=== PATIENT | male | born 1995 | race Two or more races ===

== ENCOUNTER 2025-02-23 17:28 | Inpatient (IN) | payer MEDICAID, OTHER ==
[~2025-02-23] VITALS: Ht 170.2 cm; Wt 78.0 kg
--- NOTE | 2025-02-23 19:06 | ED.PDOC ---
History of Present Illness HPI Comments 29 year old male presents to the ED with a chief complaint of abdominal pain onset today. Patient states he woke up today experiencing periumbilical pain, worsened around 13:00. Patient currently rates pain 10/10, has not taken any medication, has not experienced similar pain in the past. Denies fever, chills, nausea, vomiting, diarrhea, constipation, dysuria, hematuria, melena, blood in stool, heavy lifting. No other symptoms or modifying factors present at this time. PHYSICAL EXAM: General: Awake, alert and oriented. Skin: Skin in warm, dry and intact. Appropriate color for ethnicity. HEENT: The head is normocephalic and atraumatic. Conjunctivae are clear without exudates or hemorrhage. Sclera is non-icteric. Eyelids are normal in appearance without swelling or lesions. Oral mucosa is pink and moist Neck: The neck is supple with normal range of motion. No JVD. Cardiac: Heart rate and rhythm are normal. No murmurs, gallops, or rubs are auscultated. Respiratory: No signs of respiratory distress. Lung sounds are clear in all lobe s bilaterally without rales, rhonchi, or wheezes. Abdominal: periumbilical tenderness. Extremities: Upper and lower extremities are atraumatic in appearance without deformity or edema. Neurological: The patient is awake, alert and oriented to person, place, and time with normal speech. Speech is clear. There is no facial asymmetry. Psychiatric: Appropriate mood and affect. Good judgement and insight. REVIEW OF SYSTEMS: General: No fever, no chills, or fatigue HEENT: No sore throat, no earache, no congestion, no neck pain. Cardiac: No chest pain. No palpitations. Lungs: No shortness of breath, no cough. GI: Abdominal pain. No nausea, no vomiting, no diarrhea, no constipation, : No dysuria, frequency, or urgency. No hematuria. Musculoskeletal: No joint pain , no joint swelling, no extremity edema. Skin: No rash, no itching. Neuro: No headache, no dizziness, no weakness (And as sated in HPI) Chief Complaint: Abdominal Pain Time Seen by MD: 16:45 Reviewed Notes: Medications, Allergies Allergies: Coded Allergies: NO KNOWN ALLERGIES (Unverified , 02/23/25) Information Source: Patient, Spouse Mode of Arrival: Ambulatory Severity: Moderate Timing: Hours Duration: Since onset Prehospital treatment: None Past Medical History PAST MEDICAL HISTORY: Denies Surgical History: Denies all surgeries Family History Family History: Reviewed,noncontributory to illness, No family hx of Cancer, No family hx of DM, No family hx of Heart jae, No family hx of HTN, No family hx ofKidney jae, No family hx of Liver jae, No family hx of Lung jae, No family hx of Stroke Social History Smoker: Non-Smoker Alcohol: Denies ETOH Use Drugs: Denies Drug Use Lives In: Home Was a procedure done? Was a procedure done?: No Differential Dx Considerations may include: Differential diagnoses considered include: Abdominal aortic aneurysm, PA, esophageal rupture, intestinal obstruction, mesenteric ischemia, perforated viscus or solid organ rupture, CHF with hepatomegaly, pneumonia, abscess, appendicitis, biliary disease, diverticulitis, gastritis, gastroenteritis, hepatitis, hernia, inflammatory bowel disease, pancreatitis, peptic ulcer disease, urinary tract infection, ureteral colic, constipation, GERD, irritable syndrome, abdominal wall pain, nonspecific abdominal pain, herpes zoster, neph rolithiasis. X-Ray, Labs, Meds, VS Vital Signs Date Time Temp Pulse Resp B/P (MAP) Pulse Ox O2 Delivery O2 Flow Rate FiO2 02/23/25 21:55 99.0 74 20 118/70 (86) 100 99.0 02/23/25 17:29 97.0 58 18 123/75 100 97.0 Lab Test 02/23/25 19:13 Range/Units White Blood Count 12.1 H 4.4-10.8 10^3/uL Red Blood Count 5.03 4.5-5.90 10^6/uL Hemoglobin 16.8 13.5-17.5 g/dL Hematocrit 42.3 41.0-53.0 % Mean Corpuscular Volume 84.2 80.0-100.0 fL Mean Corpuscular Hemoglobin 33.4 H 28.0-32.0 pg Mean Corpuscular Hemoglobin Concent 39.6 H 32.0-36.0 g/dL Red Cell Distribution Width 13.5 11.8-14.3 % Platelet Count 231 140-450 10^3/uL Mean Platelet Volume 8.6 6.9-10.8 fL Neutrophils (%) (Auto) 79.2 37.0-80.0 % Lymphocytes (%) (Auto) 15.8 10.0-50.0 % Monocytes (%) (Auto) 3.8 0.0-12.0 % Eosinophils (%) (Auto) 0.7 0.0-7.0 % Basophils (%) (Auto) 0.5 0.0-2.0 % Neutrophils # (Auto) 9.6 H 1.6-8.6 10 ^3/uL Lymphocytes # (Auto) 1.9 0.4-5.4 10 ^3/uL Monocytes # (Auto) 0.5 0-1.3 10 ^3/uL Eosinophils # (Auto) 0.1 0-0.8 10 ^3/uL Basophils # (Auto) 0.1 0-0.2 10 ^3/uL Nucleated Red Blood Cells 0.1 % Sodium Level 133 L 136-145 mmol/L Potassium Level 4.6 3.5-5.1 mmol/L Chloride Level 98 98-107 mmol/L Carbon Dioxide Level 20 20-31 mmol/L Anion Gap 15 5-15 Blood Urea Nitrogen 11 9-23 mg/dL Creatinine 0.94 0.700-1.30 mg/dL Glomerular Filtration Rate Calc 112 >90 mL/min BUN/Creatinine Ratio 11.7 10.0-20.0 Serum Glucose 104 74-106 mg/dL Lactic Acid Level 0.9 0.4-2.0 mmol/L Calcium Level 9.5 8.7-10.4 mg/dL Lipase 328 H 12-53 U/L Time of 1ST Reevaluation: 17:15 Reevaluation 1ST: Unchanged Patient Education/Counseling: Diagnosis, Treatment, Need For Follow Up Family Education/Counseling: Diagnosis, Treatment, Need For Follow Up SEPSIS Sepsis Screen Date sepsis recognized/suspect: Feb 23, 2025 Time Sepsis recognized/suspect: 1730 Recent Procedure: No On Antibiotic Therapy: No Respiratory Rate >20: No Heart Rate >90: No Temp<36 C (96.8 F) or >38.3 C: No SBP <90 or MAP <65 mmHG: No New Acute Mental Status Change: No Is the patient on CPAP, BIPAP,: No Physician Orders Urinalysis (02/23/25 18:54) Ct Ab Pel With Iv Con Only (02/23/25 18:54) Saline Lock (02/23/25 18:54) Vital Signs Date Time Temp Pulse Resp B/P (MAP) Pulse Ox O2 Delivery O2 Flow Rate FiO2 02/23/25 21:55 99.0 74 20 118/70 (86) 100 99.0 02/23/25 17:29 97.0 58 18 123/75 100 97.0 Laboratory Tests Test 02/23/25 19:13 Lactic Acid Level 0.9 mmol/L (0.4-2.0) White Blood Count 12.1 10^3/uL (4.4-10.8) H Departure 1 Departure Time of Disposition: 22:09 Impression: Primary Impression: Acute pancreatitis Disposition: ADMITTED INPATIENT Condition: Stable Comments MDM: 29-year-old male with acute pancreatitis. IV fluids and antibiotics initiated in the ED Patient is stabilized in the ED. Patient admitted to hospitalist service for further treatment, evaluation and monitoring. Extensive evaluation was performed in attempt to identify or rule out: (See differential diagnosis section) The following tests were ordered, and results were reviewed by me and discussed with patient: (See diagnostic results section) The following test were independently interpreted by me: N/A I reviewed and agreed with the following test results read by other providers: CT abdomen pelvis I reviewed the following notes from the pt's past medical encounters: N/A Additional information was gathered from interviewing the following independent historians: Patient's at bedside Discussion of management or test interpretation with external physician/other qu alified health director critical care: N/A Addressed an acute or chronic illness that poses a threat to life or bodily function: Acute pancreatitis Decision regarding hospitalization or escalation of hospital level of care: Risk and benefits of admission for further treatment of patient's condition was considered. Due to patient's current clinical condition, high risk of decline and poor outcome if discharged and need for further inpatient management and monitoring, patient will be admitted to the hospital. Drug therapy requiring intensive monitoring for toxicity: IV contrast Parenteral controlled substances: IV morphine Critical Care Note Critical Care Time?: No Stability Stability form required: No I personally scribed for CHARAN CUENCA MD ([email or web address]) on 02/23/25 at 19:06. Electronically submitted by Pippa Arellano ([email or web address]). I personally scribed for CHARAN CUENCA MD ([email or web address]) on 02/23/25 at 19:13. Electronically submitted by Pippa Arellano ([email or web address]). CHARAN CUENCA MD Feb 23, 2025 19:06
[2025-02-23 19:35] LABS: Nucleated Red Blood Cells % 0.1 %
[2025-02-23 19:37] LABS: Hematocrit 42.3 % (41.0-53.0); Hemoglobin 16.8 g/dL (13.5-17.5); Mean Corpuscular Hemoglobin 33.4 pg (28.0-32.0); Mean Corpuscular Volume 84.2 fL (80.0-100.0)
[2025-02-23 19:51] LABS: Calcium 9.5 mg/dL (8.7-10.4)
[2025-02-23 19:56] LABS: Glucose 104 mg/dL (74-106)
[2025-02-23 20:17] LABS: Anion Gap 15 (5-15); BUN/Creatinine Ratio 11.7 (10.0-20.0)
[2025-02-23 20:51] LABS: Blood Urea Nitrogen 11 mg/dL (9-23); Carbon Dioxide 20 mmol/L (20-31); Chloride 98 mmol/L (98-107); Lipase 328 U/L (12-53); Potassium 4.6 mmol/L (3.5-5.1); Sodium 133 mmol/L (136-145)
--- NOTE | 2025-02-23 21:37 | DVH ---
CLINICAL HISTORY: Periumbilical abdominal pain TECHNIQUE: CT of the abdomen and pelvis was performed with IV contrast. This exam was performed according to our departmental dose optimization program. Up-to-date CT equipment and radiation dose reduction techniques are utilized as appropriate. CTDI 12 DLP 729 COMPARISON: None FINDINGS: Abdomen/Pelvis: The liver, adrenal glands, kidneys, bladder, and prostate gland are unremarkable. The spleen is moderately enlarged, measuring 15.9 cm in long axis. There is trace fluid at the proximal duodenum/ pancreatic head and neck. The abdominal aorta is normal in course and caliber. There are no significant atherosclerotic calcifications. There is no free intraperitoneal air or fluid. There is no enlarged abdominal or pelvic lymph node. There is no bowel wall thickening or dilatation. The appendix is normal. There is a small fat containing umbilical hernia. Other: The imaged lower thorax is unremarkable. No acute osseous abnormality is evident. IMPRESSION: Trace fluid at the proximal duodenum and pancreatic head / neck. Please correlate with amylase/lipase levels or pancreatitis. Moderate splenomegaly.
[2025-02-23] MEDS: IOHEXOL 300 MG/ML 100ML BOTTLE IJ ONE (22:58)
[2025-02-23] MEDS: MORPHINE SULFATE INJ 2 MG/ml SYRG IV ONE (22:59)
--- NOTE | 2025-02-23 22:59 | DVHHPRES ---
History of Present Illness Resident Creating Document: SHAYLEE FERRER History of Present Illness Patient is a [place]ian-speaking 29-year-old male with no significant past medical history, presented to [facility] ED with complaint of abdominal pain. The pain started today around 1:00 p.m. in the middle of the abdomen and it is rated 7/10 in intensity, non-radiating. The patient has not taken any medication and denies experiencing similar pain in the past. He drinks beer occasionally, but he quit more than a year ago. He denies fever, chills, nausea, vomiting, diarrhea, constipation, dysuria, hematuria, melena, blood in stool, or recent heavy lifting. On evaluation in the ED, patient is afebrile, vitals are stable. Initial labs show WBC 12.1. Hyponatremia and lipase 328. Abdominal CT shows trace fluid at the proximal duodenum/pancreatic head and neck and moderate splenomegaly. The patient was placed NPO, started on IV fluids. Patient is admitted for further evaluation and management. Past Surgical History: None Family History: None Smoke: No ALCOHOL: none Drugs: None Lives: with Family Review of Systems Review of Systems Eyes: No Pain, No Vision change, No Conjunctivae inflammation, No Eyelid inflammation, No Other, No Redness ENT: No Ear pain, No Ear discharge, No Nose pain, No Nose discharge, No Nose congestion, No Mouth pain, No Mouth swelling, No Throat pain, No Throat swelling, No Other Cardiovascular: No Chest Pain, No Palpitations, No Orthopnea, No Paroxysmal No Dyspnea, No Edema, No Lt Headedness, No Other Respiratory: No Cough, No Dry, No Shortness of breath, No SOB with exertion, No Wheezing, No Hemoptysis, No Pleuritic Pain, No Sputum, No Other Gastrointestinal: No Nausea, No Vomiting, Abdominal Pain, No Diarrhea, No Constipation, No Melena, No Hematochezia, No Other Genitourinary: No Dysuria, No Frequency, No Incontinence, No Hematuria, No Retention, No Other Musculoskeletal: No other, No neck pain, No shoulder pain, No arm pain, No back pain, No hand pain, No leg pain, No foot pain Skin: No Rash, No Lesions, No Jaundice, No Bruising, No Other Allergies: Coded Allergies: NO KNOWN ALLERGIES (Unverified , 02/23/25) Exam Vital Signs Vital Signs Date Time Temp Pulse Resp B/P (MAP) Pulse Ox O2 Delivery O2 Flow Rate FiO2 02/23/25 21:55 99.0 74 20 118/70 (86) 100 99.0 Exam General Appearance: Cooperative. Well developed. Well nourished. NAD Head Exam: Normal inspection Neck Exam: Normal inspection. Non-tender. Normal alignment Pulmonary/Respiratory: Chest non-tender. Clear bilateral breath sounds, no crackles, no wheezing. Cardiovascular/Chest: Regular rate and rhythm. No murmurs. No JVD. Peripheral Pulses: 2+ Radial (R). 2+ Radial (L). 2+ Pedal (R). 2+ Pedal (L) Abdominal Exam: Periumbilical tenderness. Normal bowel sounds. Soft. normal abdomen, no visible veins, No hepatospenomegaly. No masses Ankle Exam: Negative ankle edema Lower extremities: Negative lower extremity edema Neuro/Mental Status: A&O x4. Coherent. Thoughts/Psych: Normal thought pattern. Appropriate mood and affect. Good judgement and insight Skin Exam: Normal inspection. Normal color. Warm. Dry Labs/Xrays Labs Test 02/23/25 19:13 Range/Units White Blood Count 12.1 H 4.4-10.8 10^3/uL Red Blood Count 5.03 4.5-5.90 10^6/uL Hemoglobin 16.8 13.5-17.5 g/dL Hematocrit 42.3 41.0-53.0 % Mean Corpuscular Volume 84.2 80.0-100.0 fL Mean Corpuscular Hemoglobin 33.4 H 28.0-32.0 pg Mean Corpuscular Hemoglobin Concent 39.6 H 32.0-36.0 g/dL Red Cell Distribution Width 13.5 11.8-14.3 % Platelet Count 231 140-450 10^3/uL Mean Platelet Volume 8.6 6.9-10.8 fL Neutrophils (%) (Auto) 79.2 37.0-80.0 % Lymphocytes (%) (Auto) 15.8 10.0-50.0 % Monocytes (%) (Auto) 3.8 0.0-12.0 % Eosinophils (%) (Auto) 0.7 0.0-7.0 % Basophils (%) (Auto) 0.5 0.0-2.0 % Neutrophils # (Auto) 9.6 H 1.6-8.6 10 ^3/uL Lymphocytes # (Auto) 1.9 0.4-5.4 10 ^3/uL Monocytes # (Auto) 0.5 0-1.3 10 ^3/uL Eosinophils # (Auto) 0.1 0-0.8 10 ^3/uL Basophils # (Auto) 0.1 0-0.2 10 ^3/uL Nucleated Red Blood Cells 0.1 % Sodium Level 133 L 136-145 mmol/L Potassium Level 4.6 3.5-5.1 mmol/L Chloride Level 98 98-107 mmol/L Carbon Dioxide Level 20 20-31 mmol/L Anion Gap 15 5-15 Blood Urea Nitrogen 11 9-23 mg/dL Creatinine 0.94 0.700-1.30 mg/dL Glomerular Filtration Rate Calc 112 >90 mL/min BUN/Creatinine Ratio 11.7 10.0-20.0 Serum Glucose 104 74-106 mg/dL Lactic Acid Level 0.9 0.4-2.0 mmol/L Calcium Level 9.5 8.7-10.4 mg/dL Lipase 328 H 12-53 U/L SEPSIS Sepsis Screen Date sepsis recognized/suspect: Feb 23, 2025 Time Sepsis recognized/suspect: 1730 Recent Procedure: No On Antibiotic Therapy: No Respiratory Rate >20: No Heart Rate >90: No Temp<36 C (96.8 F) or >38.3 C: No SBP <90 or MAP <65 mmHG: No New Acute Mental Status Change: No Is the patient on CPAP, BIPAP,: No Physician Orders Urinalysis (02/23/25 18:54) Ct Ab Pel With Iv Con Only (02/23/25 18:54) Saline Lock (02/23/25 18:54) Blood Culture (02/23/25 22:13) Piperacillin-Tazob 3.375gm (Zosyn 3.375g (02/23/25 22:15) Vital Signs Date Time Temp Pulse Resp B/P (MAP) Pulse Ox O2 Delivery O2 Flow Rate FiO2 02/23/25 21:55 99.0 74 20 118/70 (86) 100 99.0 02/23/25 17:29 97.0 58 18 123/75 100 97.0 Laboratory Tests Test 11/12/25 19:13 Lactic Acid Level 0.9 mmol/L (0.4-2.0) White Blood Count 12.1 10^3/uL (4.4-10.8) H Assessment/Plan Assessment/Plan Acute pancreatitis Ruled out gallstone pancreatitis Ruled out alcoholic pancreatitis Gallbladder US: The gallbladder appears unremarkable. No stones are seen. No wall thickening is seen. The patient is not tender over the gallbladder. Alma's Criteria: 1 points Pain management with Dilaudid Zofran 4 mg IV q4h Protonix 40 mg IV daily IV NS 125 MLS/HR Lipase 328 Blood culture UA and UDS Magnesium Hepatic panel LDH 613 Hepatic steatosis Transaminitis Gallbladder US: Echogenic liver consistent with fatty infiltration AST 94 ALT 70 Diet: NPO PUD prophylaxis: Protonix 40 mg IV daily Goals of care: Full code, discussed for >30 minutes on 02/23/25 Plan discussed with patient Plan discussed with Dr. Zhang Plan discussed with: Patient Date of Service: Feb 23, 2025 Billing Provider: JUVENTINO ZHANG MD Common Visit Codes: 13087-[id number] INP/OBS CARE (HIGH) Secondary Visit Codes: 09801-[id number] CARE PLAN 30 MINUTES SHAYLEE FERRER RESIDENT Feb 23, 2025 22:59
[2025-02-23] MEDS: PANTOPRAZOLE 40 MG/10 ML VIAL INJ IV ONE (23:06)
[2025-02-23] MEDS: PIPERACILLIN-TAZOB 3.375GM 100 ML IV ONE (23:06)
[2025-02-23] MEDS: KETOROLAC TROMETH 30 MG/ML 1ML VIAL IV ONE (23:06)
[2025-02-23] MEDS ORDERED: ONDANSETRON HCL 4 MG/2 ML VIAL IV PRN (23:15)
[2025-02-23 23:28] VITALS: PULSE 78; RESP 16; O2SAT 98
--- NOTE | 2025-02-24 00:29 | DVH ---
MEDICAL RECORDS NUMBER: [id number] PROCEDURE: Gallbladder Ultrasound. Date: 02/23/2025 11:56 PM HISTORY: abdominal pain COMPARISON: None FINDINGS: Multiple zacarias-scale and color flow images of the right upper quadrant were obtained. Pancreas: The pancreas is not well evaluated given the overlying bowel gas. Liver: Liver appears Echogenic. No focal lesions are seen. Gallbladder: The gallbladder appears unremarkable. No stones are seen. No wall thickening is seen. The patient is not tender over the gallbladder. Bile ducts:The extrahepatic common bile duct measures 3 mm. Right kidney: The right kidney is normal in size. There is normal echogenicity of the right kidney and there is no evidence of hydronephrosis.Cortical thickness is well preserved. IMPRESSION: 1. No sonographic evidence of gallstones or acute cholecystitis. 2. Echogenic liver consistent with fatty infiltration.
[2025-02-24 01:03] LABS: Alkaline Phosphatase 102 U/L (46-116); Bilirubin, Total 0.6 mg/dL (0.2-1.0); Magnesium 2.1 mg/dL (1.6-2.6); Total Protein 8.0 g/dL (5.7-8.2)
[2025-02-24 01:13] LABS: Alanine Aminotransferase 70 U/L (7-40); Albumin 4.9 g/dL (3.2-4.8)
--- NOTE | 2025-02-24 01:18 | DVH ---
CHEST RADIOGRAPH Indication: chest pain Technique: Single frontal view of the chest was obtained Comparison: None FINDINGS/IMPRESSION: The lungs are clear. The cardiomediastinal silhouette is unremarkable. No pleural effusion or pneumothorax. No acute osseous abnormality.
[2025-02-24] MEDS: SODIUM CHLORIDE 0.9% 2,000 ML IV ONE (02:35)
[2025-02-24 02:43] LABS: Bilirubin, Direct < 0.1 mg/dL (<0.3)
[2025-02-24 02:55] VITALS: BP 89/37; PULSE 53; RESP 14; TEMP 98.1; O2SAT 98
[2025-02-24 03:17] LABS: INR 1.0 (0.9-1.15); Partial Thromboplastin Time 28.5 SEC (24.5-34.5); Prothrombin Time 10.6 sec (9.3-11.8)
[2025-02-24] MEDS: SODIUM CHLORIDE 0.9% 1,000 ML IV ONE (03:47)
[2025-02-24 04:30] LABS: Hemoglobin 14.4 g/dL (13.5-17.5); Nucleated Red Blood Cells % 0.1 %
[2025-02-24 04:32] LABS: Hematocrit 38.3 % (41.0-53.0); Mean Corpuscular Hemoglobin 31.5 pg (28.0-32.0); Mean Corpuscular Volume 83.9 fL (80.0-100.0)
[2025-02-24 04:49] LABS: Albumin 3.8 g/dL (3.2-4.8); Alkaline Phosphatase 90 U/L (46-116); Anion Gap 12 (5-15); BUN/Creatinine Ratio 14.1 (10.0-20.0); Blood Urea Nitrogen 11 mg/dL (9-23); Carbon Dioxide 21 mmol/L (20-31); Chloride 104 mmol/L (98-107); Glucose 99 mg/dL (74-106); Potassium 3.5 mmol/L (3.5-5.1); Sodium 137 mmol/L (136-145); Total Protein 6.3 g/dL (5.7-8.2)
[2025-02-24 04:50] LABS: Bilirubin, Total 0.6 mg/dL (0.2-1.0)
[2025-02-24 04:51] LABS: Calcium 8.1 mg/dL (8.7-10.4); Lipase 429 U/L (12-53)
[2025-02-24 04:58] LABS: Alanine Aminotransferase 49 U/L (7-40)
[2025-02-24 05:00] VITALS: BP 103/59; PULSE 66; RESP 18; O2SAT 99
[2025-02-24 07:55] LABS: Cholesterol 478 mg/dL (< 200); HDL Cholesterol 21 mg/dL (40-59); Triglycerides 2324 mg/dL (< 150)
[2025-02-24 09:23] VITALS: BP 125/70; PULSE 94; RESP 20; TEMP 98.2; O2SAT 98
[2025-02-24 09:30] LABS: Urine Protein, UAD TRACE (Negative)
[2025-02-24 09:45] LABS: Amphetamine Screen, Urine Neg (NEGATIVE); Barbiturate Scree,Urine Neg (NEGATIVE); Benzodiazephine Screen, Urine Neg (NEGATIVE); Cannabinoid Screen, Urine Neg (NEGATIVE); Cocaine Screen, Urine Neg (NEGATIVE); Opiate Scree,Urine Neg (NEGATIVE); Phencyclidine Screen, Urine Neg (NEGATIVE)
[2025-02-24] MEDS: LACTATED RINGER'S 1,000 ML IV SCH (09:46)
[2025-02-24] MEDS: PANTOPRAZOLE 40 MG/10 ML VIAL INJ IV SCH (09:47)
[2025-02-24] MEDS: HYDROmorphone HCL 2 MG/ML VL/or syr IV PRN (09:57)
[2025-02-24 13:00] VITALS: BP 101/46; PULSE 80; RESP 18; TEMP 100.7; O2SAT 96
[2025-02-24] MEDS ORDERED: ACETAMINOPHEN 325 MG TAB PO PRN (15:45)
[2025-02-24 16:42] VITALS: BP 109/54; PULSE 71; RESP 16; TEMP 99.1; O2SAT 98
[2025-02-24 18:27] LABS: Lipase 458 U/L (12-53)
[2025-02-24 19:30] LABS: Cholesterol 367 mg/dL (< 200); HDL Cholesterol 28 mg/dL (40-59); Triglycerides 719 mg/dL (< 150)
--- NOTE | 2025-02-24 19:47 | DVHPNRES ---
Progress Note Date Seen: Feb 24, 2025 Resident Creating Document: TIERNEY TRIPP RESIDENT Has the PT tested + for MRSA If YES, has PT been informed?: No Medical Necessity Reason Pt with a Central, PICC or Fol: No Subjective Review of Systems Bakari White is a 29-year-old male patient, with no significant past medical history. The patient came to [facility] ED with a complaint of 5hrs of abdominal pain, 5/10 in intensity, localized in the epigastric area, cramp like, non-radiating, with no aggravating or alleviating factors. The patient has not taken any medication and denies experiencing similar pain in the past. The pain worsen to 7/10, this prompted his visit to the ED. The patient denies fever, chills, nausea, vomiting, diarrhea, constipation, dysuria, hematuria, melena, blood in stool, recent heavy lifting, change in diet, sick contacts or recent travels. On evaluation in the ED, patient was afebrile, vitals are stable. Initial labs showed: WBC 12.1. Hyponatremia and lipase 328. Abdominal CT shows trace fluid at the proximal duodenum/pancreatic head and neck and moderate splenomegaly. The patient was placed NPO, started on IV fluids. Patient was admitted for further evaluation and management. Past Surgical History: Appendectomy. Family History: None Smoke: No ALCOHOL: none Drugs: None Lives: with Family. Hospital course: On 02/24/25, the patient was examined and evaluated at bedside. VS, labs and chart was reviewed. Lipid panel showed, triglycerides: 2,324, Cholesterol: 478; Lipase:429. alcohol levels <3. The patient continues NPO and IV fluids. The patient reports that his pain has improved after analgesia, denies new complaints. New lipid panel was ordered. Blood cultures are pending. We will continue following up this patient progress closely. Review of Systems Eyes: No Pain, No Vision change, No Conjunctivae inflammation, No Eyelid inflammation, No Other, No Redness ENT: No Ear pain, No Ear discharge, No Nose pain, No Nose discharge, No Nose congestion, No Mouth pain, No Mouth swelling, No Throat pain, No Throat swelling, No Other Cardiovascular: No Chest Pain, No Palpitations, No Orthopnea, No Paroxysmal No Dyspnea, No Edema, No Lt Headedness, No Other Respiratory: No Cough, No Dry, No Shortness of breath, No SOB with exertion, No Wheezing, No Hemoptysis, No Pleuritic Pain, No Sputum, No Other Gastrointestinal: No Nausea, No Vomiting, Abdominal Pain 5/10 after analgesia, No Diarrhea, No Constipation, No Melena, No Hematochezia, No Other Genitourinary: No Dysuria, No Frequency, No Incontinence, No Hematuria, No Retention, No Other Musculoskeletal: No other, No neck pain, No shoulder pain, No arm pain, No back pain, No hand pain, No leg pain, No foot pain Skin: No Rash, No Lesions, No Jaundice, No Bruising, No Other Allergies: no known allergies. Objective vital signs Vital Sign Date Time Temp Pulse Resp B/P (MAP) Pulse Ox O2 Delivery O2 Flow Rate FiO2 02/24/25 16:42 99.1 71 16 109/54 (72) 98 99.1 02/24/25 08:00 Room Air* 0 21 Total Intake and Output 02/23/25 02/23/25 02/24/25 15:00 23:00 07:00 Intake Total 280 ml Output Total 1 ml Balance 279 ml medications Current Medications Medications Dose Ordered Sig/[place] Route Start Time Stop Time Status Last Admin Dose Admin Ondansetron HCl 4 mg Q4HP PRN IV 02/23/25 23:15 Hydromorphone HCl 0.5 mg Q4HPRN PRN IV 02/23/25 23:15 02/24/25 09:57 0.5 MG Pantoprazole Sodium 40 mg DAILY IV 02/24/25 10:00 02/24/25 09:47 40 MG Lactated Ringer's 1,000 ml @ 125 mls/hr Q8H IV 02/24/25 08:00 02/24/25 17:57 125 MLS/HR Acetaminophen 650 mg Q6HP PRN PO 02/24/25 15:45 Examination General Appearance: Not in acute distress. Cooperative. Well developed. Well nourished. Head Exam: Normal inspection Neck Exam: Normal inspection. Non-tender. Normal alignment Pulmonary/Respiratory: Chest non-tender. Clear bilateral breath sounds, no crackles, no wheezing. Cardiovascular/Chest: Regular rate and rhythm. No murmurs. No JVD. Peripheral Pulses: 2+ Radial (R). 2+ Radial (L). 2+ Pedal (R). 2+ Pedal (L) Abdominal Exam: Soft abdomen, normal bowel sounds, epigastic and periumbilical tenderness, no rebound. Ankle Exam: Negative ankle edema Lower extremities: Negative lower extremity edema Neuro/Mental Status: A&O x3. Coherent. Thoughts/Psych: Normal thought pattern. Appropriate mood and affect. Skin Exam: Normal inspection. Normal color. Warm. Dry laboratory and microbiology Laboratory Tests 02/24/25 03:42 Test 02/24/25 03:42 Range/Units Serum Glucose 99 74-106 mg/dL Problem List/Assessment/Plan Problem List/Assessment/Plan #Acute pancreatitis, likely due to hypertriglyceridemic #Ruled out: gallstone pancreatitis #Ruled out: alcoholic pancreatitis Gallbladder US: The gallbladder appears unremarkable. No stones are seen. No wall thickening is seen. The patient is not tender over the gallbladder. Jo's Criteria: 1 points Pain management with Dilaudid Zofran 4 mg IV q4h Protonix 40 mg IV daily IV NS 125 MLS/HR Lipase 328 Blood culture: pending UA and UDS: negative. 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 Goals of care: Full code, discussed for >30 minutes on 02/24/25 Code Status: Full code PCP: no established, the patient will follow up in the D/C clinic. Plan discussed with Dr. Zhang Plan discussed with: Patient and . Plan discussed with: Patient, Spouse My Orders My Orders Orders - TIERNEY TRIPP Procedure Category Date Status Time Acetaminophen Tablet PHA 02/24/25 In Process (Tylenol Tablet) 15:45 Lipase LAB 02/24/25 In Process 17:22 Lipid Panel LAB 02/24/25 In Process 17:22 Date of Service: Feb 24, 2025 Billing Provider: JUVENTINO ZHANG MD Common Visit Codes: [id number] INP/OBS CARE(HIGH) TIERNEY TRIPP RESIDENT Feb 24, 2025 19:47
[2025-02-24 20:31] VITALS: BP 104/47; PULSE 66; RESP 15; TEMP 99.1; O2SAT 99
[2025-02-25] VITALS (7 sets, daily range): BP systolic 102–110; BP diastolic 54–65; PULSE 62–96; RESP 16–18; TEMP 97.8–98.8; O2SAT 97–98
[2025-02-25 04:01] LABS: COVID19 ANTIGEN SOFIA FIA NEGATIVE (NEGATIVE)
[2025-02-25 07:16] LABS: Hematocrit 38.6 % (41.0-53.0); Hemoglobin 13.5 g/dL (13.5-17.5); Mean Corpuscular Hemoglobin 29.7 pg (28.0-32.0); Mean Corpuscular Volume 85.3 fL (80.0-100.0); Nucleated Red Blood Cells % 0.1 %
[2025-02-25 07:23] LABS: Anion Gap 12 (5-15); Carbon Dioxide 23 mmol/L (20-31); Chloride 105 mmol/L (98-107); Sodium 140 mmol/L (136-145)
[2025-02-25 07:29] LABS: BUN/Creatinine Ratio 7.4 (10.0-20.0); Glucose 89 mg/dL (74-106)
[2025-02-25 07:30] LABS: Blood Urea Nitrogen 6 mg/dL (9-23); Calcium 8.4 mg/dL (8.7-10.4); Potassium 3.4 mmol/L (3.5-5.1)
[2025-02-25] MEDS: GEMFIBROZIL 600 MG TAB PO ONE (12:31)
[2025-02-25] MEDS: POTASSIUM CHL 20MEQ/100ML 100 ML IV ONE (12:31)
--- NOTE | 2025-02-25 13:40 | DVHPNRES ---
Progress Note Date Seen: Feb 25, 2025 Resident Creating Document: TIERNEY TRIPP RESIDENT Has the PT tested + for MRSA If YES, has PT been informed?: No Medical Necessity Reason Pt with a Central, PICC or Fol: No Subjective Review of Systems Bakari White is a 29-year-old male patient patient, with no significant past medical history. The patient came to [facility]- ED with a complaint of 5hrs of abdominal pain, 5/10 in intensity, localized in the epigastric area, cramp like, non-radiating, with no aggravating or alleviating factors. The patient has not taken any medication and denies experiencing similar pain in the past. The pain worsen to 7/10, this prompted his visit to the ED. The patient denies fever, chills, nausea, vomiting, diarrhea, constipation, dysuria, hematuria, melena, blood in stool, recent heavy lifting, change in diet, sick contacts or recent travels. On evaluation in the ED, patient was afebrile, vitals are stable. Initial labs showed: WBC 12.1. Hyponatremia and lipase 328. Abdominal CT shows trace fluid at the proximal duodenum/pancreatic head and neck and moderate splenomegaly. The patient was placed NPO, started on IV fluids. Patient was admitted for further evaluation and management. Past Surgical History: Appendectomy. Family History: None Smoke: No ALCOHOL: none Drugs: None Lives: with Family. Hospital course: On 02/24/25, the patient was examined and evaluated at bedside. VS, labs and chart was reviewed. Lipid panel showed, triglycerides: 2,324, Cholesterol: 478; Lipase:429. Alcohol levels <3. The patient continues NPO and IV fluids. The patient reports that his pain has improved after analgesia, denies new complaints. New lipid panel was ordered. Blood cultures are pending. We will continue following up this patient progress closely. On 02/25/25, the patient was examined and evaluated at bedside. VS, labs and chart was reviewed. Lipid panel showed improvement, trending down: Triglycerides: 719, Cholesterol: 367; Lipase: is still elevated: 458. The patient report feeling better, the abdominal pain 3/10. Denies new complaints. The patient will advanced to clear liquid diet and started on gemfibrozil 600mg po daily. Blood cultures are negative at 24hrs. We will continue following up this patient progress closely. Review of Systems Eyes: No Pain, No Vision change, No Conjunctivae inflammation, No Eyelid inflammation, No Other, No Redness ENT: No Ear pain, No Ear discharge, No Nose pain, No Nose discharge, No Nose congestion, No Mouth pain, No Mouth swelling, No Throat pain, No Throat swelling, No Other Cardiovascular: No Chest Pain, No Palpitations, No Orthopnea, No Paroxysmal No Dyspnea, No Edema, No Lt Headedness, No Other Respiratory: No Cough, No Dry, No Shortness of breath, No SOB with exertion, No Wheezing, No Hemoptysis, No Pleuritic Pain, No Sputum, No Other Gastrointestinal: No Nausea, No Vomiting, Abdominal Pain 3/10 after analgesia, No Diarrhea, No Constipation, No Melena, No Hematochezia, No Other Genitourinary: No Dysuria, No Frequency, No Incontinence, No Hematuria, No Retention, No Other Musculoskeletal: No other, No neck pain, No shoulder pain, No arm pain, No back pain, No hand pain, No leg pain, No foot pain Skin: No Rash, No Lesions, No Jaundice, No Bruising, No Other Allergies: no known allergies. Objective vital signs Vital Sign Date Time Temp Pulse Resp B/P (MAP) Pulse Ox O2 Delivery O2 Flow Rate FiO2 02/25/25 12:42 98.5 62 16 107/60 (76) 97 98.5 02/24/25 22:00 Room Air* 0 21 Total Intake and Output 02/24/25 02/24/25 02/25/25 15:00 23:00 07:00 Intake Total 0 ml Output Total 0 ml Balance 0 ml medications Current Medications Medications Dose Ordered Sig/[place] Route Start Time Stop Time Status Last Admin Dose Admin Ondansetron HCl 4 mg Q4HP PRN IV 02/23/25 23:15 Hydromorphone HCl 0.5 mg Q4HPRN PRN IV 02/23/25 23:15 02/24/25 09:57 0.5 MG Pantoprazole Sodium 40 mg DAILY IV 02/24/25 10:00 02/25/25 11:12 40 MG Lactated Ringer's 1,000 ml @ 125 mls/hr Q8H IV 02/24/25 08:00 02/25/25 08:00 125 MLS/HR Acetaminophen 650 mg Q6HP PRN PO 02/24/25 15:45 Gemfibrozil 600 mg Q12HR PO 02/25/25 22:00 Examination General Appearance: Not in acute distress. Cooperative. Well developed. Well nourished. Head Exam: Normal inspection Neck Exam: Normal inspection. Non-tender. Normal alignment Pulmonary/Respiratory: Chest non-tender. Clear bilateral breath sounds, no crackles, no wheezing. Cardiovascular/Chest: Regular rate and rhythm. No murmurs. No JVD. Peripheral Pulses: 2+ Radial (R). 2+ Radial (L). 2+ Pedal (R). 2+ Pedal (L) Abdominal Exam: Soft abdomen, normal bowel sounds, epigastic and periumbilical tenderness has improved, no rebound. Ankle Exam: Negative ankle edema Lower extremities: Negative lower extremity edema Neuro/Mental Status: A&O x3. Coherent. Thoughts/Psych: Normal thought pattern. Appropriate mood and affect. Skin Exam: Normal inspection. Normal color. Warm. Dry laboratory and microbiology Laboratory Tests 02/25/25 06:21 Test 02/25/25 06:21 Range/Units Serum Glucose 89 74-106 mg/dL Microbiology Date/Time Source Procedure Growth Status 02/23/25 22:31 Blood Blood Culture - Preliminary NO GROWTH AFTER 24 HOURS OF INCUBATION. Resulted Problem List/Assessment/Plan Problem List/Assessment/Plan #Acute pancreatitis, likely due to hypertriglyceridemic #Ruled out: gallstone pancreatitis #Ruled out: alcoholic pancreatitis Gallbladder US: The gallbladder appears unremarkable. No stones are seen. No wall thickening is seen. The patient is not tender over the gallbladder. Jo's Criteria: 1 points Pain management with Dilaudid Zofran 4 mg IV q4h IV Ringer lactate Lipase 328, 458 Blood culture: Negative 24hrs UA and UDS: negative. 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 #Chronic Hepatic steatosis #Transaminates\ bordeline elevated Gallbladder US: Echogenic liver consistent with fatty infiltration AST 94 ALT 70 Diet: The patient will advanced to: Clear liquids diet. PUD prophylaxis: Protonix 40 mg po BID DVT: patient deambulates. Goals of care: Full code, discussed for >30 minutes on 02/25/25 Code Status: Full code PCP: no established, the patient will follow up in the D/C clinic. Plan discussed with Dr. Zhang Plan discussed with: Patient and . Plan discussed with: Patient My Orders My Orders Orders - TIERNEY TRIPP Procedure Category Date Status Time Acetaminophen Tablet PHA 02/24/25 In Process (Tylenol Tablet) 15:45 Communication Order ORDERS 02/24/25 Transmitted 19:20 Consult Care CONS 02/25/25 Transmitted Coordinator Date of Service: Feb 25, 2025 Billing Provider: JUVENTINO ZHANG MD Common Visit Codes: [id number] INP/OBS CARE(HIGH) TIERNEY TRIPP RESIDENT Feb 25, 2025 13:40
[2025-02-25] MEDS ORDERED: TRAM-626 PO (18:30)
[2025-02-25] MEDS ORDERED: FENO145T27 PO (18:31)
[2025-02-25] MEDS ORDERED: ATOR20TA50 PO (18:31)
--- NOTE | 2025-02-25 19:26 | DVHDSRES ---
Discharge Summary Date of Admission Resident Creating Document: TIERNEY TRIPP RESIDENT Feb 23, 2025 at 23:14 Date of Discharge: Feb 25, 2025 Admitting Diagnosis #Acute intractable abdominal pain likely due to acute pancreatitis #Acute pancreatitis, likely due to hypertriglyceridemic #Dyslipidemia Wounds: No wounds present on admission. Labs/Diagnostic Data: Laboratory Results Test 02/25/25 06:21 02/25/25 02:15 02/24/25 17:51 02/24/25 09:05 White Blood Count 7.9 10^3/uL (4.4-10.8) Red Blood Count 4.53 10^6/uL (4.5-5.90) Hemoglobin 13.5 g/dL (13.5-17.5) Hematocrit 38.6 % (41.0-53.0) Mean Corpuscular Volume 85.3 fL (80.0-100.0) Mean Corpuscular Hemoglobin 29.7 pg (28.0-32.0) Mean Corpuscular Hemoglobin Concent 34.9 g/dL (32.0-36.0) Red Cell Distribution Width 13.8 % (11.8-14.3) Platelet Count 148 10^3/uL (140-450) Mean Platelet Volume 7.4 fL (6.9-10.8) Neutrophils (%) (Auto) 65.9 % (37.0-80.0) Lymphocytes (%) (Auto) 26.3 % (10.0-50.0) Monocytes (%) (Auto) 5.9 % (0.0-12.0) Eosinophils (%) (Auto) 1.3 % (0.0-7.0) Basophils (%) (Auto) 0.6 % (0.0-2.0) Neutrophils # (Auto) 5.2 10 ^3/uL (1.6-8.6) Lymphocytes # (Auto) 2.1 10 ^3/uL (0.4-5.4) Monocytes # (Auto) 0.5 10 ^3/uL (0-1.3) Eosinophils # (Auto) 0.1 10 ^3/uL (0-0.8) Basophils # (Auto) 0 10 ^3/uL (0-0.2) Nucleated Red Blood Cells 0.1 % Sodium Level 140 mmol/L (136-145) Potassium Level 3.4 mmol/L (3.5-5.1) Chloride Level 105 mmol/L (98-107) Carbon Dioxide Level 23 mmol/L (20-31) Anion Gap 12 (5-15) Blood Urea Nitrogen 6 mg/dL (9-23) Creatinine 0.81 mg/dL (0.700-1.30) Glomerular Filtration Rate Calc 122 mL/min (>90) BUN/Creatinine Ratio 7.4 (10.0-20.0) Serum Glucose 89 mg/dL (74-106) Calcium Level 8.4 mg/dL (8.7-10.4) Influenza Type A Antigen Negative (Negative) Influenza Type B Antigen Negative (Negative) SARS-CoV-2 Antigen (Rapid) Negative (NEGATIVE) Triglycerides Level 719 mg/dL (< 150) Cholesterol Level 367 mg/dL (< 200) LDL Cholesterol mg/dL (< 100) HDL Cholesterol 28 mg/dL (40-59) Lipase 458 U/L (12-53) Urine Color Yellow (Yellow) Urine Clarity Clear (Clear) Urine pH 6.0 (5.0-9.0) Urine Specific [place] > 1.035 (1.001-1.035) Urine Protein Trace (Negative) Urine Ketones Negative (Negative) Urine Blood Negative /uL (Negative) Urine Nitrite Negative (Negative) Urine Bilirubin Negative (Negative) Urine Urobilinogen Normal mg/dL (Negative) Urine Leukocyte Esterase Negative /uL (Negative) Urine RBC 1 /hpf (0 - 3) Urine Microscopic WBC < 1 /HPF (0-3) Urine Squamous Epithelial Cells Few /hpf (<5) Urine Bacteria None seen /hpf (None Seen) Urine Glucose Normal mg/dL (Normal) Urine Opiates Screen Neg (NEGATIVE) Urine Fentanyl Screen Neg (NEGATIVE) Urine Barbiturates Screen Neg (NEGATIVE) Urine Phencyclidine Screen Neg (NEGATIVE) Urine Amphetamines Screen Neg (NEGATIVE) Urine Benzodiazepines Screen Neg (NEGATIVE) Urine Cocaine Screen Neg (NEGATIVE) Urine Cannabinoids Screen Neg (NEGATIVE) Test 02/24/25 03:42 02/24/25 01:37 02/23/25 19:13 Hemoglobin A1c 5.2 % A1C (<5.7) Total Bilirubin 0.6 mg/dL (0.2-1.0) Aspartate Amino Transferase (AST) 36 U/L (13-40) Alanine Aminotransferase (ALT) 49 U/L (7-40) Alkaline Phosphatase 90 U/L (46-116) Total Protein 6.3 g/dL (5.7-8.2) Albumin 3.8 g/dL (3.2-4.8) Plasma/Serum Blood Alcohol < 3.0 mg/dL (<10) Prothrombin Time 10.6 sec (9.3-11.8) Prothrombin Time INR 1.00 (0.9-1.15) Activated Partial Thromboplast Time 28.5 SEC (24.5-34.5) Lactic Acid Level 0.9 mmol/L (0.4-2.0) Magnesium Level 2.1 mg/dL (1.6-2.6) Direct Bilirubin < 0.1 mg/dL (<0.3) Lactate Dehydrogenase 613 U/L (120-246) Other Laboratory Tests 02/25/25 06:21 Brief Hx & Hospital Course: Bakari White is a 29-year-old male patient patient, with no significant past medical history. The patient came to [facility]- ED with a complaint of 5hrs of abdominal pain, 5/10 in intensity, localized in the epigastric area, cramp like, non-radiating, with no aggravating or alleviating factors. The patient has not taken any medication and denies experiencing similar pain in the past. The pain worsen to 7/10, this prompted his visit to the ED. The patient denies fever, chills, nausea, vomiting, diarrhea, constipation, dysuria, hematuria, melena, blood in stool, recent heavy lifting, change in diet, sick contacts or recent travels. On evaluation in the ED, patient was afebrile, vitals are stable. Initial labs showed: WBC 12.1. Hyponatremia and lipase 328. Abdominal CT shows trace fluid at the proximal duodenum/pancreatic head and neck and moderate splenomegaly. The patient was placed NPO, started on IV fluids. Patient was admitted for further evaluation and management. Past Surgical History: Appendectomy. Family History: None Smoke: No ALCOHOL: none Drugs: None Lives: with Family. Hospital course: during his hospital admission the patient was evaluated and assessed as follow: On 02/24/25, the patient was examined and evaluated at bedside. VS, labs and chart was reviewed. Lipid panel showed, triglycerides: 2,324, Cholesterol: 478; Lipase:429. Alcohol levels <3. The patient continues NPO and IV fluids. The patient reports that his pain has improved after analgesia, denies new complaints. New lipid panel was ordered. Blood cultures are pending. We will continue following up this patient progress closely. On 02/25/25, the patient was examined and evaluated at bedside. VS, labs and chart was reviewed. Lipid panel showed improvement, trending down: Triglycerides: 719, Cholesterol: 367; Lipase: is still elevated: 458. The patient report feeling better, the abdominal pain 1/10. Denies new complaints. The patient will advanced to clear liquid diet and started on gemfibrozil 600mg po daily. Blood cultures are negative. The patient tolerated well the oral liquid diet. Due to significant clinical improvement. The patient will be discharge home today with fenofibrate and will follow up in the D/C clinic within one week. Review of Systems Eyes: No Pain, No Vision change, No Conjunctivae inflammation, No Eyelid inflammation, No Other, No Redness ENT: No Ear pain, No Ear discharge, No Nose pain, No Nose discharge, No Nose congestion, No Mouth pain, No Mouth swelling, No Throat pain, No Throat swelling, No Other Cardiovascular: No Chest Pain, No Palpitations, No Orthopnea, No Paroxysmal No Dyspnea, No Edema, No Lt Headedness, No Other Respiratory: No Cough, No Dry, No Shortness of breath, No SOB with exertion, No Wheezing, No Hemoptysis, No Pleuritic Pain, No Sputum, No Other Gastrointestinal: No Nausea, No Vomiting, Abdominal Pain 3/10 after analgesia, No Diarrhea, No Constipation, No Melena, No Hematochezia, No Other Genitourinary: No Dysuria, No Frequency, No Incontinence, No Hematuria, No Retention, No Other Musculoskeletal: No other, No neck pain, No shoulder pain, No arm pain, No back pain, No hand pain, No leg pain, No foot pain Skin: No Rash, No Lesions, No Jaundice, No Bruising, No Other Allergies: no known allergies. Physical Exam: General Appearance: Not in acute distress. Cooperative. Well developed. Well nourished. Head Exam: Normal inspection Neck Exam: Normal inspection. Non-tender. Normal alignment Pulmonary/Respiratory: Chest non-tender. Clear bilateral breath sounds, no crackles, no wheezing. Cardiovascular/Chest: Regular rate and rhythm. No murmurs. No JVD. Peripheral Pulses: 2+ Radial (R). 2+ Radial (L). 2+ Pedal (R). 2+ Pedal (L) Abdominal Exam: Soft abdomen, normal bowel sounds, epigastic and periumbilical tenderness has improved, no rebound. Ankle Exam: Negative ankle edema Lower extremities: Negative lower extremity edema Neuro/Mental Status: A&O x3. Coherent. Thoughts/Psych: Normal thought pattern. Appropriate mood and affect. Skin Exam: Normal inspection. Normal color. Warm. Dry Operations or Procedures PROCEDURE(s): ABPLIV - CT AB PEL WITH IV CON ONLY REASON: Periumbilical abdominal pain ORDER NUMBER(s): [id number], ACCESSION NUMBER(s): [id number] CLINICAL HISTORY: Periumbilical abdominal pain TECHNIQUE: CT of the abdomen and pelvis was performed with IV contrast. This exam was performed according to our departmental dose optimization program. Up-to-date CT equipment and radiation dose reduction techniques are utilized as appropriate. CTDI 12 DLP 729 COMPARISON: None FINDINGS: Abdomen/Pelvis: The liver, adrenal glands, kidneys, bladder, and prostate gland are unremarkable. The spleen is moderately enlarged, measuring 15.9 cm in long axis. There is trace fluid at the proximal duodenum/ pancreatic head and neck. The abdominal aorta is normal in course and caliber. There are no significant atherosclerotic calcifications. There is no free intraperitoneal air or fluid. There is no enlarged abdominal or pelvic lymph node. There is no bowel wall thickening or dilatation. The appendix is normal. There is a small fat containing umbilical hernia. Other: The imaged lower thorax is unremarkable. No acute osseous abnormality is evident. IMPRESSION: Trace fluid at the proximal duodenum and pancreatic head / neck. Please correlate with amylase/lipase levels or pancreatitis. Moderate splenomegaly. EDURE(s): CXR1 - CHEST XRAY 1 VIEW REASON: chest pain ORDER NUMBER(s): [id number], ACCESSION NUMBER(s): [id number] CHEST RADIOGRAPH Indication: chest pain Technique: Single frontal view of the chest was obtained Comparison: None FINDINGS/IMPRESSION: The lungs are clear. The cardiomediastinal silhouette is unremarkable. No pleural effusion or pneumothorax. No acute osseous abnormality. ATED BY: TANNER JAUREGUI MD DICTATED DATE/TIME: 02/24/25 011 PROCEDURE(s): GBUS - GALLBLADDER REASON: abdominal pain ORDER NUMBER(s): [id number], ACCESSION NUMBER(s): [id number] MEDICAL RECORDS NUMBER: [id number] PROCEDURE: Gallbladder Ultrasound. Date: 02/23/2025 11:56 PM HISTORY: abdominal pain COMPARISON: None FINDINGS: Multiple zacarias-scale and color flow images of the right upper quadrant were obtained. Pancreas: The pancreas is not well evaluated given the overlying bowel gas. Liver: Liver appears Echogenic. No focal lesions are seen. Gallbladder: The gallbladder appears unremarkable. No stones are seen. No wall thickening is seen. The patient is not tender over the gallbladder. Bile ducts:The extrahepatic common bile duct measures 3 mm. Right kidney: The right kidney is normal in size. There is normal echogenicity of the right kidney and there is no evidence of hydronephrosis.Cortical thickness is well preserved. IMPRESSION: 1. No sonographic evidence of gallstones or acute cholecystitis. 2. Echogenic liver consistent with fatty infiltration. 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 Activity: Light activity Activity comment: No excercise or extenuos activity Follow Up/Referral: F/U in D/C clinic on Friday03/02/[address] Smith, PM clinic Medications: As per EMR Scheduled Atorvastatin Calcium (Atorvastatin Calcium), 1 TAB PO QPM Fenofibrate (Fenofibrate), 1 TAB PO DAILY Scheduled PRN Tramadol HCl (Tramadol HCl), 50 MG PO TID PRN, (Reported) Discharge Statement: "Patient was advised to return to the ER or call 911 if any headaches, dizziness, shortness of breath, chest pain, abdominal pain, bleeding, fevers, or worsening of medical condition. Patient was counseled about treatment plan, medications, possible side effects, patientverbalized understanding. All questions were answered to the best of my ability. 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 Morgan. Cardiology Dr. Bautista in [place] Case discussed with Dr. Zhang Date of Service: Feb 25, 2025 Billing Provider: JUVENTINO ZHANG MD Common Visit Codes: 84647-LMI/OBS DISCH DAY >30min TIERNEY TRIPP RESIDENT Feb 25, 2025 19:26
[2025-02-25] MEDS ORDERED: GEMFIBROZIL 600 MG TAB PO SCH (22:00)
[2025-02-26] MEDS ORDERED: PANTOPRAZOLE 40 MG TAB PO SCH (06:00)
== END 2025-02-25 21:58 | disposition home or self-care (01) | DRG 282 ==
LOC: ER 17:28 → OVERFLOW 23:14 → WEST WING 02-24 21:40
PROVIDERS: ADMIT Internal Medicine; ATTEND Internal Medicine
DX: K85.90 Acute pancreatitis without necrosis or infection, unspecified (principal); E78.1 Pure hyperglyceridemia; K76.0 Fatty (change of) liver, not elsewhere classified; R74.01 Elevation of levels of liver transaminase levels; E78.49 Other hyperlipidemia
CPT/HCPCS: 36415; 71045; 74177; 76705; 80048; 80053; 80061; 80076; 80307; 80320; 81001; 83036; 83605; 83615; 83690; 83735; 85025; 85610; 85730; 87040; 87426; 87804; 96365; 96375; G0378; J1885; J2470; J2543; J3480